=== PATIENT | female | born 1950 | race Caucasian/White ===

== ENCOUNTER 2024-05-13 13:25 | Outpatient (CLI) | payer SELFPAY ==
[2024-05-13 18:49] LABS: Basophils % 0.5 % (0.1-2.0); Eosinophils # 0.1 K/mm3 (0.0-0.4); Eosinophils % 1.3 % (0.1-12.0); Hematocrit 36.8 % (37.0-47.0); Hemoglobin 12.5 g/dL (12.2-16.2); Lymphocytes # 1.3 K/mm3 (0.7-4.5); Lymphocytes % 21.3 % (10-50); Mean Corpuscular HGB Conc 34.1 g/dL (31.8-35.4); Mean Corpuscular Hemoglobin 32.6 pg (27.0-31.2); Mean Corpuscular Volume 95.6 fl (81-99); Mean Platelet Volume 10.6 fl (7.4-10.4); Monocytes # 0.4 K/mm3 (0.1-1.0); Monocytes % 6.9 % (1.7-9.3); Neutrophils # 4.2 K/mm3 (1.8-7.8); Neutrophils % 69.9 % (37.0-80.0); Platelet Count 257 K/mm3 (142-424); Red Blood Count 3.85 M/mm3 (4.20-5.40); Red Cell Distribution Width 13.9 % (11.5-17.5)
[2024-05-13 18:50] LABS: Alanine Aminotransferase 20 U/L (12-78); Albumin Level 4.2 g/dl (3.5-5.0); Albumin/Globulin Ratio 1.6 (1.1-1.8); Alkaline Phosphatase 93 U/L (38-126); Anion Gap 11.6 mEq/L (5-15); Aspartate Amino Transferase 26 U/L (14-36); Bilirubin,Total 0.7 mg/dl (0.2-1.3); Blood Urea Nitrogen 13 mg/dl (7-17); Calcium 9.1 mg/dl (8.4-10.2); Carbon Dioxide 26 mmol/L (22.0-30.0); Chloride 107 mmol/L (98-107); Chol/HDL Ratio 3.3 (1-3.5); Cholesterol 235 mg/dl (140-200); Estimated Glomerular Filt Rate 61 ml/min (>60); GFR (African American) 74 ML/MIN (>60); Globulin 2.7 g/dL (1.3-3.2); Glucose 97 mg/dl (74-100); HDL Cholesterol 72 mg/dl (40-60); Iron 100 ug/dL (37-170); Potassium 3.6 mmoL/L (3.5-5.1); Sodium 141 mmol/L (136-145); Total Protein,Serum 6.9 g/dl (6.3-8.2); Triglycerides 106 mg/dl (30-150); VLDL Cholesterol 21 mg/dL (0-40)
[2024-05-13 19:01] LABS: Direct LDL Cholesterol 143.06 mg/dL (100-129); Total Iron Binding Capacity 344 ug/dL (265-497)
[2024-05-13 19:07] LABS: T4 (Thyroxine) 9.9 ug/dl (5.53-11.0)
[2024-05-13 19:20] LABS: Thyroid Stimulating Hormone 1.38 uIU/mL (0.465-4.68)
[2024-05-13 19:25] LABS: Ferritin 79.7 ng/ml (11.1-264)
[2024-05-13 19:56] LABS: Vitamin B12 196 pg/mL (239-931)
[2024-05-13 20:00] LABS: Folate 6.56 ng/mL
== END 2024-05-13 23:59 | disposition home or self-care (01) ==
LOC: LAB.DROPOF 05-16 10:31
PROVIDERS: PCP Nurse Practitioner Family; Visit Provider Nurse Practitioner Family
DX: F44.89 Other dissociative and conversion disorders (principal)
CPT/HCPCS: 80053; 80061; 82607; 82728; 82746; 83540; 83550; 84436; 84443; 85025; 87086